=== PATIENT | female | born 1990 | race Caucasian/White ===

== ENCOUNTER → 2017-10-08 18:20 | Outpatient (CLI) | payer OTHER, SELFPAY ==
[2017-10-11 11:42] LABS: HPV Reflexed? NOT INDICATED
== END ==
PROVIDERS: Visit Provider Obstetrics & Gynecology
DX: Z12.4 Encounter for screening for malignant neoplasm of cervix (principal)
CPT/HCPCS: 88175; G0145

== ENCOUNTER 2017-11-13 10:03 | Day surgery (SDC) | payer OTHER, SELFPAY ==
[2017-11-06 13:04] LABS: Hemoglobin 13.6 g/dl (12.0-15.0); Mean Corp Hgb Conc 33.2 g/gl (32-36); Mean Corpuscular Hgb 27.5 pg (27.0-32.0); Mean Platelet Vol. 10.6 fl (6.2-12.0); Platelet Count 227 K/mm3 (150-450); RBC Distribution Width CV 12.7 % (11.6-14.6); RBC Distribution Width SD 38.7 fl (35.1-43.9); Red Blood Count 4.94 M/mm3 (4.2-5.4); Scan Indicated on CBC? Y/N NO
[2017-11-06 13:12] LABS: Prothrombin Time (Protime)PT. 12.9 SECONDS (11.7-14.9)
[2017-11-06 13:13] LABS: Partial Thromboplast Time 27.7 Seconds (24.1-36.2)
[2017-11-13 10:22] LABS: Internal QC Validated? YES +Cl - CLEAR BKGD
[2017-11-13 10:25] LABS: Pregnancy, Urine Negative Negative
[2017-11-13 10:34] VITALS: BP 122/73; PULSE 72; RESP 16; TEMP 36.4; O2SAT 100; BMI 23.8
[2017-11-13] MEDS: Bupivacaine Mpf 0.5% 30 ML VIAL (12:31)
--- NOTE | 2017-11-13 12:37 | PCM.DC ---
You will use the following diet at home:: No restrictions Discharge Activity: May not drive while taking narcotic pain medications., May Shower, May Take a Tub Bath Return to work on:: 11/15/17 May resume sexual activity in: No Restrictions - when comfortable after surgery Call your doctor if your incision/area has: Continuous Slow Oozing, Increased Pain/ Swelling, Increased Redness Call your doctor if you observe: Fever of 101 or Higher, Uncontrolled pain Change Dressing in (Days):: 4 Remove Dressing in (days):: 4 Cleanse incision/area with: Soap & Water, Keep Dressing Clean & Dry Additional Instructions: Take two ALEVE OR three Ibuprofen every 8 hrs as needed for milder pain, and add the narcotic pain medication if needed for more severe pain. Allergies/Adverse Reactions: Allergies Penicillins Allergy (Verified 11/05/17 09:57) Hives Medications to take at Discharge Cholecalciferol (Vitamin D3) [Vitamin D3] 2,000 unit PO DAILY 11/05/17 Inulin/Chromium Picolinate [Fiber Gummies] 1 each PO DAILY 11/05/17 Norgestimate-Ethinyl Estradiol [Previfem] 1 tab PO DAILY 11/05/17 Vitamin B Complex 1 each PO DAILY 11/05/17 Hydrocodone/Acetaminophen [Martin 5-325 Tablet] 1 - 2 each PO Q6H PRN PRN 3 Days #16 tablet 11/13/17 The following prescriptions were given: Hydrocodone/Acetaminophen [Martin 5-325 Tablet] 1 - 2 each PO Q6H PRN PRN 3 Days #16 tablet PRN Reason: Mod-Severe Pain (4-10/10) Primary Care Physician: Care Physician,No Primary [Primary Care Provider] - Please Follow Up With: Gladys Sullivan MD - [phone] When: in 2 wk for postop appointment Proposed Discharge Date: 11/13/17
--- NOTE | 2017-11-13 12:42 | DCINST_ITS ---
You will use the following diet at home:: No restrictions Discharge Activity: May not drive while taking narcotic pain medications., May Shower, May Take a Tub Bath Return to work on:: 11/15/17 May resume sexual activity in: No Restrictions - when comfortable after surgery Call your doctor if your incision/area has: Continuous Slow Oozing, Increased Pain/ Swelling, Increased Redness Call your doctor if you observe: Fever of 101 or Higher, Uncontrolled pain Change Dressing in (Days):: 4 Remove Dressing in (days):: 4 Cleanse incision/area with: Soap & Water, Keep Dressing Clean & Dry Additional Instructions: Take two ALEVE OR three Ibuprofen every 8 hrs as needed for milder pain, and add the narcotic pain medication if needed for more severe pain. Allergies/Adverse Reactions: Allergies Penicillins Allergy (Verified 11/05/17 09:57) Hives Medications to take at Discharge Cholecalciferol (Vitamin D3) [Vitamin D3] 2,000 unit PO DAILY 11/05/17 Inulin/Chromium Picolinate [Fiber Gummies] 1 each PO DAILY 11/05/17 Norgestimate-Ethinyl Estradiol [Previfem] 1 tab PO DAILY 11/05/17 Vitamin B Complex 1 each PO DAILY 11/05/17 Hydrocodone/Acetaminophen [[place] 5-325 Tablet] 1 - 2 each PO Q6H PRN PRN 3 Days #16 tablet 11/13/17 The following prescriptions were given: Hydrocodone/Acetaminophen [[place] 5-325 Tablet] 1 - 2 each PO Q6H PRN PRN 3 Days #16 tablet PRN Reason: Mod-Severe Pain (4-10/10) Primary Care Physician: Care Physician,No Primary [Primary Care Provider] - Please Follow Up With: Gldays Sullivan MD - [phone] When: in 2 wk for postop appointment Proposed Discharge Date: 11/13/17
[2017-11-13 13:27] VITALS: BP 114/84; BP 122/33; PULSE 65; RESP 16; TEMP 37; O2SAT 92
[2017-11-13 13:45] VITALS: BP 122/33; BP 127/88; PULSE 60; RESP 16; O2SAT 100
[2017-11-13 14:00] VITALS: BP 116/72; BP 122/33; PULSE 60; RESP 16; O2SAT 97
[2017-11-13 14:16] VITALS: BP 114/76; BP 122/33; PULSE 60; RESP 16; TEMP 36.4; O2SAT 97
--- NOTE | 2017-11-13 14:24 | OP.PCM_ITS ---
Operative Report Date of Procedure: 11/13/17 PROCEDURE: Diagnostic Laparoscopy. 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 Haylee Colindres CRNA Graduating Machine Operator: ANDREAS Reynolds EBL: minimal Complications: None Drains: Red Martinez catheter used to drain the bladder prior to initiation of the case Fluids: LR replacement Findings; Uterus with irregular contour at serosa (adenomyosis vs small fibroids). Fallopian tubes and ovaries are WNL. No evidence of endometriosis noted. Small adhesion between bowel epiploicae and L fallopian tube. Parametrial and paracervical varicosities at L side of uterus/cervix. Gross inspection of bowel omentum. liver edge also WNL. Gallbladder no visualized, appendix not visualized. Displacement vs malformation of rib in RUQ, protrudes into abdominal cavity. Narrative account: After the risks, benefits, alternatives of procedure had been reviewed with the patient, informed consent was obtained. The patient was taken to the Operating room with an IV running. she was positioned on the operating table in dorsal supine position, with arms tucked and given general anesthesia. Once asleep she was repositioned to the dorsal lithotomy position and prepped and draped in the usual sterile fashion. A red Martinez catheter was used to drain the bladder prior to initiating the case. A sponge stick was placed into the vagina to allow manipulation of the uterus and cervix during the case. Attention was then turned to the anterior abdominal wall . Skin incisions were created in the midline at the suprapubic skin and at the infraumbilical skin. While maintaining upward traction of the anterior abdominal wall a Veress needle was inserted through the umbilical incision into the peritoneal cavity. There was free drop of saline, low opening pressure and free flow of CO2 noted. Once the intraabdominal pressure had reached 12 mm of mercury the Veress needle was removed and a bladeless 5 mm trocar was placed through infraumbilical skin incision into the peritoneal cavity. Correct placement was confirmed using the scope. Under direct visualization then with the patient in Trendelenburg position, a bladeless 5 mm trocar was inserted in through suprapubic skin incision into the peritoneal cavity. The uterus as anteverted and had an irregular contour suggestive of small multiple fibroids or possibly adenomyosis. Both ovaries and fallopian tubes were WNL. There was no endometriosis noted. there were filmy adhesions of the bowel epiploicae to the L fallopian tube. there were varicose veins noted to the left side of the cervix (pelvic congestion as source of pain?). The uterus was then anteverted and a photo was taken with both fallopian tubes in view. The ovarian fossae were free of endometriosis. Of note: there was a displaced vs malformed rib protruding into the upper abdomen. The liver edge was incompletely seen, but was WNL. The gallbladder and appendix were not seen. At this point, the procedure was terminated. The pneumoperitoneum was reduced and the instruments and trocars were removed from he the anterior abdominal wall skin. The skin incisions were closed with 4-0 Monocryl in a subcuticular fashion. Skin glue and OpSites were applied to the skin. The sponge stick was removed from the vagina. The patient was returned to dorsal supine position. She was awakened from general anesthesia. She was transferred to the recovery room bed in stable condition after tolerating the procedure well. Sponge, lap, needle and instrument counts were correct x two. Medications given preop and intraoperatively included: 20 cc of 1/4 % Marcaine was used as a subcutaneous block at the end of the case. For a complete listing of medications given preop and intraop , please see the anesthesia record.
[2017-11-13 16:25] VITALS: BP 122/33
== END 2017-11-13 16:26 | disposition home or self-care (01) ==
LOC: SDC 10:03 → AC 10:05
PROVIDERS: Visit Provider Obstetrics & Gynecology
PROC: (CPT 49320; principal; 2017-11-13 12:15)
DX: N94.6 Dysmenorrhea, unspecified (principal); N94.10 Unspecified dyspareunia; G89.29 Other chronic pain; R10.2 Pelvic and perineal pain; I86.8 Varicose veins of other specified sites
CPT/HCPCS: 00840; 49320; 36415; 81025; 85027; 85610; 85730; 86850; 86900; J7120

== ENCOUNTER 2018-04-16 10:33 | Day surgery (SDC) | payer OTHER, SELFPAY ==
[2018-04-15 11:02] LABS: Hematocrit 41.4 % (37-47); Hemoglobin 13.6 g/dl (12.0-15.0); Mean Corp Hgb Conc 32.9 g/gl (32-36); Mean Corpuscular Hgb 27.9 pg (27.0-32.0); Mean Corpuscular Volume 84.8 fL (81-99); Mean Platelet Vol. 10.4 fl (6.2-12.0); Platelet Count 188 K/mm3 (150-450); RBC Distribution Width CV 13.2 % (11.6-14.6); RBC Distribution Width SD 40.6 fl (35.1-43.9); Red Blood Count 4.88 M/mm3 (4.2-5.4); White Blood Count 5.5 K/mm3 (4.4-11.0)
[2018-04-15 11:03] LABS: Scan Indicated on CBC? Y/N NO
[2018-04-15 11:08] LABS: Partial Thromboplast Time 26.7 Seconds (24.1-36.2)
[2018-04-16] VITALS (9 sets, daily range): BP systolic 99–134; BP diastolic 68–92; PULSE 58–80; RESP 16; TEMP 36.4–37.4; O2SAT 95–99; BMI 23.6
[2018-04-16 10:55] LABS: Internal QC Validated? YES +Cl - CLEAR BKGD; Pregnancy, Urine Negative Negative
--- NOTE | 2018-04-16 12:33 | PCM.OP.BLANK ---
Operative Report Date of Procedure: 04/16/18 PROCEDURE: Laparoscopic assisted vaginal hysterectomy. Bilateral salpingectomy Preoperative diagnosis: Dyspareunia Dysmenorrhea Chronic pelvic pain Failed trial of medical management Laparoscopy prior with parametrial varicosities Postop diagnosis: Dyspareunia Dysmenorrhea Chronic pelvic pain Failed trial of medical management Laparoscopy prior with parametrial varicosities. Anesthesia: General anesthesia. Rocael Sandoval CRNA Surgeon: Gladys Sullivan MD Assistant Spa Director: ANDREAS Urias RNFA EBJose Maria 100cc Complications: none Drains: Carbajal draining clear yellow urine Fluids: replacement LR Findings: Normal appearing uterus and bilateral ovaries, fallopian tubes. Gross inspect of bowel, liver edge, upper abdomen wnl. 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 PATH: Uterus, bilateral fallopian tubes Narrative account: After the risks, benefits and alternatives of the procedure were reviewed with the patient , informed consent was obtained. The patient was taken to the Operative room with an IV running . She was positioned in the dorsal supine position on the operating table and given general anesthesia. Once asleep she was positioned to the dorsal lithotomy position with the arms tucked at the sides and prepped and draped in the usual sterile fashion. A Carbajal catheter was inserted to drain the bladder and left open to drain in the drape. The weighted speculum was placed into the vagina and a single tooth tenaculum was placed at the cervix. A ZUMI uterine manipulator was inserted into the cervix and secured into place . The single toothed tenaculum was removed. Attention was then turned to the anterior abdominal wall. the skimmer scoop operator's gloved were changed and skin incisions were created at the infraumbilical and suprapubic skin and at a point approximately penitentiary between the suprapubic and infraumbilical skin incisions. Local anesthesia was used to infiltrate the skin where the trocar incision sites were created. A transverse 5 mm infraumbilical skin incision , a transverse 5 mm suprapubic incision and an transverse 5 mm midline incision were created. A Veress needle was inserted in to the peritoneal cavity at the infraumbilical skin incision while maintaining upward traction of the anterior abdominal wall at the umbilicus. There was free drop of saline, free flow of CO2 and low opening pressure noted. Once the intraabdominal pressure had reached approximately 15 mm HG, the Veress needle was removed and a bladeless 5 mm trocar was inserted into the peritoneal cavity. Correct placement was confirmed using the laparoscope. Under direct visualization the other two 5 mm bladeless trocars were inserted into the peritoneal cavity. The fallopian tubes were retracted medially and using a LigaSure device the fallopian tube was divided from the ovary and the mesosalpinx, leaving the fallopian tube free at each side of the uterus. The fallopian tubes were removed through the suprapubic trocar and set aside for later pathology review. The uteroovarian pedicles were then divided using a [place] LigaSure device. The broad ligament was then divided down to the level of the round ligament on both sides. At this point the laparoscopic portion of the case was completed. The trocars were left in place, but the instruments were removed and gas turned off. A sterile drape was used to cover the abdomen. Attention was then turned to the vaginal portion of the case. The ZUMI uterine manipulator was removed from the cervix. The single toothed tenaculum was repositioned on the cervix. A Carbajal was inserted through the urethra and clear yellow urine returned, minimal amt. The Carbajal was clamped off with a Fanny clamp. The cervical mucosal was then incised circumferentially using Bovie cautery and a knife. The posterior cul de sac was entered by sharp dissection with Burch scissors and a weighted speculum was placed into the posterior cul se sac. Dissection then was initiated at the anterior cervix to enter the anterior cul se sac. The anterior cul de sac was entered by sharp dissection and a narrow Laura retractor was inserted to retract the bladder out of harm's way for the remainder of the case. The uterosacral ligaments were clamped bilaterally with curved Carmen clamps and the pedicles divided and suture ligated and tagged for later identification. Next the cardinal ligament was clamped bilaterally and divided and suture ligated. Adequate hemostasis was noted. The anterior cul de sac peritoneum was then entered by sharp dissection and a narrow Laura retractor was placed into the anterior cul de sac to retract the bladder out of harm's way for the remainder of the case. The uterine arteries were clamped bilaterally , divided and suture ligated. Dissection then continued along each side of the uterus. Each pedicle was secured with a Carmen clamp, divided and suture ligated until ultimately the uterine fundus was reached. The superior pedicles on each side were secured with a curved Carmen clamp and the uterus was surgically amputated and set aside. The superior pedicle was then suture ligated, then free tied and tagged for identification. The superior pedicles were dry. There was bleeding noted along the posterior vaginal cuff and along the anterior vaginal cuff . The peritoneum was then closed with a running purse string suture of 1 Vicryl, incorporating the superior pedicles and uterosacral ligament tags. The vaginal apex was then closed with a series of figure of eight stitches of 1 Vicryl. Excellent hemostasis was noted. The Carbajal catheter was briefly opened and clear yellow urine (minimal amount) noted. The Carbajal was attached to the Carbajal bag and clear yellow urine returned. A second look was performed with the laparoscope: excellent hemostasis was noted at all pedicles and at the vaginal cuff. Roya was sprayed along the cuff and pedicles for additional hemostasis. The pneumoperitoneum was reduced and all instruments and trocars were removed. The skin incisions were closed with 4-0 Monocryl in a subcuticular fashion. Sterile dressings were applied. The patient was returned to dorsal supine position and awakened from general anesthesia. She was then transferred to the recovery room bed in stable condition after tolerating the procedure well. Sponge, lap, needle and instrument counts correct times two. Medications given preop and intraoperatively included: Clindamycin 900 mg IV and Gentamicin IV was given suggestion clerk to the operating room , Marcaine with epinephrine was used as a subcutaneous injection at the trocar skin incision sites, and Toradol 30 mg IV x one was given. For a complete listing of medications given preop and intraoperatively, please see the anesthesia record.
--- NOTE | 2018-04-16 12:40 | HYST_PTH ---
PATIENT: MEJIA COOL LOC: [facility] U#:[id number] AGE/SX: 27/ ROOM: RE04/16/[address]: Dr. Gladys Sullivan MD : 1990 BED: DIS: 04/17/2018 SPEC #: [id number] RECD: 04/16/18 16:14 STATUS: KATARZYNA CHANTELLE #: [id number] DANIAL: 04/16/18 12:[address]: Gladys Sullivan DEPT: SURGICAL PATHOLOGY RECD BY: Bonifacio Catherine ENTERED: 04/17/18 11:26 SP TYPE: HYSTERECT OTHR DR: No Primary Care Phys Tissues: Uterus, NOS Procedures: Surgery Specimen Level V HEADER OPERATION: Hysterectomy, lap-assisted vaginal, bilateral salpingectomy PRE-OP DIAGNOSIS: Chronic pelvic pain, dyspareunia, pelvic varicosities, dysmenorrhea TISSUE SUBMITTED: Bilateral tubes, uterus and cervix MICROSCOPIC DIAGNOSIS Uterus, cervix and bilateral fallopian tubes, vaginal hysterectomy and bilateral salpingectomy: Cervix - chronic inflammation. Endometrium - weakly proliferative endometrium. Myometrium - no pathologic diagnosis. Bilateral fallopian tubes - no pathologic diagnosis. SJ:jaqueline 04/18/18 MICROSCOPIC DESCRIPTION Slides are reviewed. GROSS DESCRIPTION Received in fixative is one container labeled with the patient's name and designated bilateral tubes, uterus, cervix. The specimen consists of a hysterectomy specimen consisting of uterus with cervix and detached bilateral fallopian tubes. The uterus with cervix weighs 65 gm and measures 8.5 x 5 x 3.5 cm. The serosal surface is strong, glistening. The ectocervical mucosa is unremarkable. The external os is oval in contour. The endocervical canal measures 2.5 cm in length and the endocervical mucosa is unremarkable. The triangular endometrial cavity measures 4 cm in length and up to 2.5 cm in width. The endometrium is strong, glistening without any mass lesion and measures <0.1 cm in thickness. Sections of the uterine wall do not reveal any mass lesion and measures up to 1.5 cm in thickness. The fallopian tubes are not identified as right or left. One of the fallopian tubes measure 4.5 cm in length and 0.5 cm in diameter and the second fallopian tube measures 3 cm in length and 0.5 cm in diameter. The fimbrial end is identified. Archer[employer] Hay Sorter sections are submitted in eight cassettes as follows: 1 - anterior cervix, 2 - posterior cervix, 3 & 4 - anterior uterine wall, 5 & 6 - posterior uterine wall, 7 - one fallopian tube, 8 - second fallopian tube, entirely submitted. / JANA:jaqueline 04/17/18 TC:5 CPT: 54639
[2018-04-16] MEDS: Bupiv/Epi 0.5% Mpf 30 ML Vial (14:11)
--- NOTE | 2018-04-16 14:25 | PCM.DC.VHY ---
Discharge Diet: No Restrictions Discharge Activity: May not drive while taking narcotic pain medications., May Shower, May Take a Tub Bath Return to work on:: 06/02/18 May resume sexual activity in: 4-6 weeks Call your doctor if you observe: Fever of 101 or Higher, Inability to have a bowel movement, Using more than one pad per hour, Calf discomfort, Uncontrolled pain Change Dressing in (Days):: 7 Remove Dressing in (days):: 7 Cleanse incision/area with: Soap & Water, Keep Dressing Clean & Dry Additional Instructions: You may take Tylenol 500 mg tablets, one or two every 8 hrs for pain You may ADD EITHER Aleve two tablets every 8 hrs OR Ibuprofen 3 tablets every 8 hr for pain Take OxyIR for more severe pain. OK to walk, and do light activity as tolerated/ comfortable. Allergies/Adverse Reactions: Allergies Penicillins Allergy (Verified 04/10/18 10:22) Hives Medications to take at Discharge Cholecalciferol (Vitamin D3) [Vitamin D3] 2,000 unit PO DAILY 11/05/17 Inulin/Chromium Picolinate [Fiber Gummies] 1 each PO DAILY 11/05/17 Vitamin B Complex 1 each PO DAILY 11/05/17 Docusate Sodium [Colace] 100 mg PO BID #30 capsule 04/16/18 Naproxen 250 - 500 mg PO Q8H PRN PRN #30 tablet 04/16/18 Oxycodone [Oxyir] 5 mg PO Q6H PRN PRN 7 Days #20 tablet 04/16/18 The following prescriptions were given: Oxycodone [Oxyir] 5 mg PO Q6H PRN PRN 7 Days #20 tablet PRN Reason: Mod-Severe Pain (4-10/10) Naproxen 250 - 500 mg PO Q8H PRN PRN #30 tablet PRN Reason: Mild-Mod Pain (1-5/10) Docusate Sodium [Colace] 100 mg PO BID #30 capsule Primary Care Physician: Care Physician,No Primary [Primary Care Provider] - Test Results: Test results from this visit will be discussed in further detail at your follow-up appointment, if applicable. Please Follow Up With: Gladys Sullivan MD - [phone] When: in 2 wk for postop appointment as you have scheduled. Proposed Discharge Date: 04/17/18
--- NOTE | 2018-04-16 14:31 | DCINST_ITS ---
Discharge Diet: No Restrictions Discharge Activity: May not drive while taking narcotic pain medications., May Shower, May Take a Tub Bath Return to work on:: 06/02/18 May resume sexual activity in: 4-6 weeks Call your doctor if you observe: Fever of 101 or Higher, Inability to have a bowel movement, Using more than one pad per hour, Calf discomfort, Uncontrolled pain Change Dressing in (Days):: 7 Remove Dressing in (days):: 7 Cleanse incision/area with: Soap & Water, Keep Dressing Clean & Dry Additional Instructions: You may take Tylenol 500 mg tablets, one or two every 8 hrs for pain You may ADD EITHER Aleve two tablets every 8 hrs OR Ibuprofen 3 tablets every 8 hr for pain Take OxyIR for more severe pain. OK to walk, and do light activity as tolerated/ comfortable. Allergies/Adverse Reactions: Allergies Penicillins Allergy (Verified 04/10/18 10:22) Hives Medications to take at Discharge Cholecalciferol (Vitamin D3) [Vitamin D3] 2,000 unit PO DAILY 11/05/17 Inulin/Chromium Picolinate [Fiber Gummies] 1 each PO DAILY 11/05/17 Vitamin B Complex 1 each PO DAILY 11/05/17 Docusate Sodium [Colace] 100 mg PO BID #30 capsule 04/16/18 Naproxen 250 - 500 mg PO Q8H PRN PRN #30 tablet 04/16/18 Oxycodone [Oxyir] 5 mg PO Q6H PRN PRN 7 Days #20 tablet 04/16/18 The following prescriptions were given: Oxycodone [Oxyir] 5 mg PO Q6H PRN PRN 7 Days #20 tablet PRN Reason: Mod-Severe Pain (4-10/10) Naproxen 250 - 500 mg PO Q8H PRN PRN #30 tablet PRN Reason: Mild-Mod Pain (1-5/10) Docusate Sodium [Colace] 100 mg PO BID #30 capsule Primary Care Physician: Care Physician,No Primary [Primary Care Provider] - Test Results: Test results from this visit will be discussed in further detail at your follow- up appointment, if applicable. Please Follow Up With: Gladys Sullivan MD - [phone] When: in 2 wk for postop appointment as you have scheduled. Proposed Discharge Date: 04/17/18
[2018-04-16] MEDS: Ondansetron 4 MG/2 ML Vial IV ×2 (17:04→21:39)
[2018-04-16] MEDS: Ketorolac 30 MG/ML Syringe IV ×2 (17:04→23:36)
[2018-04-16] MEDS: Lactated Ringers 1,000 ML 125 ML IV (19:57)
[2018-04-16] MEDS: Acetaminophen 500 MG Tablet 1000 MG PO (20:35)
[2018-04-16] MEDS: oxyCODONE 5 MG Tablet PO (20:36)
[2018-04-17 02:24] VITALS: BP 114/73; PULSE 69; RESP 16; TEMP 37.4; O2SAT 98
[2018-04-17 06:29] LABS: Hematocrit 35.3 % (37-47); Hemoglobin 11.8 g/dl (12.0-15.0); Mean Corp Hgb Conc 33.4 g/gl (32-36); Mean Corpuscular Hgb 28.4 pg (27.0-32.0); Mean Corpuscular Volume 85.1 fL (81-99); Mean Platelet Vol. 11.1 fl (6.2-12.0); Platelet Count 142 K/mm3 (150-450); RBC Distribution Width CV 13.1 % (11.6-14.6); RBC Distribution Width SD 40.1 fl (35.1-43.9); Red Blood Count 4.15 M/mm3 (4.2-5.4); White Blood Count 8.7 K/mm3 (4.4-11.0)
[2018-04-17 06:33] LABS: Scan Indicated on CBC? Y/N NO
[2018-04-17 07:16] LABS: Creatinine, Serum 0.71 mg/dL (0.55-1.02); EST Glomerular Filtration Rate 104 mL/min (>60); Est Glom Filt Rate - Afr Amer 126 mL/min (>60); Estimated Creatinine Clearance 97.58 ml/min
[2018-04-17 07:32] VITALS: O2SAT 97
--- NOTE | 2018-04-17 07:51 | PCM.PROGNOTE ---
Subjective: POD#1 LAVH, bilateral salpingectomy for chronic pelvic pain, dysmenorrhea, dyspareunia. paracervical / parametrial varicosities. Doing well Carbajal removed and has voided once. Has declined pain med this am as states crampiness manageable and not as bad as her period normally is. Toradol overnight. Tylenol and OxyIR. Minimal bleeding. Nausea last night, but none this am. - Physical Exam General: Alert, Oriented x3, Cooperative, No apparent distress HEENT: Atraumatic Neck: Supple Abdomen: Soft Skin: Incision - L/S incisions: dressing CDI (op sites on) all three sites Neurological: Cranial nerves II-XII grossly intact Psych/Mental Status: Normal Affect Vital Signs Temp Pulse Resp BP Pulse Ox 99.4 F H 69 16 114/73 97 04/17/18 02:24 04/17/18 02:24 04/17/18 02:24 04/17/18 02:24 04/17/18 07:32 Oxygen Delivery Method Room Air Weight: 60.328 kg Body Mass Index (BMI) 23.6 Intake and Output for Last 24 Hours 04/15/18 04/16/18 04/17/18 23:59 23:59 23:59 Intake Total 1607 / 1607 919 / 919 Output Total 1050 / 1050 1200 / 1200 Balance 557 / 557 -281 / -281 Laboratory Tests Past 24 Hrs 04/16/18 04/17/18 04/17/18 10:45 05:52 05:52 WBC 8.7 RBC 4.15 L Hgb 11.8 L Hct 35.3 L MCV 85.1 MCH 28.4 MCHC 33.4 RDW 13.1 RDW Differential 40.1 Plt Count 142 L MPV 11.1 Creatinine 0.71 Estim Creat Clear Calc 97.58 Est GFR (MDRD) Af Amer 126 Est GFR (MDRD) Non-Af 104 Urine Test Negative Medical Necessity - Tobacco Use Smoking Status: Current every day smoker Tobacco Use: Cigarettes Assessment/Plan POD#1 LAVH, Bilateral salpingectomy Stable postop. Voiding trial appears successful. Tolerating diet. IV to S/L. Pain control adequate. Dischg home today. RTO in 2 wk for postop incision check.
--- NOTE | 2018-04-17 07:54 | PCM.DC.SUM ---
Hospital Course and Treatment Operations: hysterectomy - LAVH, bilateral salpingectomy Summary of Care Provided: The patient is a 27 year old female admitted for LAVH, bilateral salpingectomy 2/2 chronic pelvic pain, dyspareunia, dysmenorrhea. LAVH, Bilateral salpingectomy performed without complication. Postop course uneventful. CBC stable. Home on POD #1 Tolerating diet, pain control adequate and voiding well. - Physical Exam Vital Signs Temp Pulse Resp BP Pulse Ox 99.4 F H 69 16 114/73 97 04/17/18 02:24 04/17/18 02:24 04/17/18 02:24 04/17/18 02:24 04/17/18 07:32 Oxygen Delivery Method Room Air Weight: 60.328 kg Body Mass Index (BMI) 23.6 Intake and Output for Last 24 Hours 04/15/18 04/16/18 04/17/18 23:59 23:59 23:59 Intake Total 1607 / 1607 919 / 919 Output Total 1050 / 1050 1200 / 1200 Balance 557 / 557 -281 / -281 Laboratory Tests Past 24 Hrs 04/16/18 04/17/18 04/17/18 10:45 05:52 05:52 WBC 8.7 RBC 4.15 L Hgb 11.8 L Hct 35.3 L MCV 85.1 MCH 28.4 MCHC 33.4 RDW 13.1 RDW Differential 40.1 Plt Count 142 L MPV 11.1 Creatinine 0.71 Estim Creat Clear Calc 97.58 Est GFR (MDRD) Af Amer 126 Est GFR (MDRD) Non-Af 104 Urine Test Negative Discharge Diet: No Restrictions Discharge Activity: May not drive while taking narcotic pain medications., May Shower, May Take a Tub Bath Return to work on:: 06/02/18 May resume sexual activity in: 4-6 weeks Call your doctor if you observe: Fever of 101 or Higher, Inability to have a bowel movement, Using more than one pad per hour, Calf discomfort, Uncontrolled pain Change Dressing in (Days):: 7 Remove Dressing in (days):: 7 Cleanse incision/area with: Soap & Water, Keep Dressing Clean & Dry Home Medications: Medications to take at Discharge Cholecalciferol (Vitamin D3) [Vitamin D3] 2,000 unit PO DAILY 11/05/17 Inulin/Chromium Picolinate [Fiber Gummies] 1 each PO DAILY 11/05/17 Vitamin B Complex 1 each PO DAILY 11/05/17 Docusate Sodium [Colace] 100 mg PO BID #30 capsule 04/16/18 Naproxen 250 - 500 mg PO Q8H PRN PRN #30 tablet 04/16/18 Oxycodone [Oxyir] 5 mg PO Q6H PRN PRN 7 Days #20 tablet 04/16/18 Following Prescrptions Were Given to Patient: Oxycodone [Oxyir] 5 mg PO Q6H PRN PRN 7 Days #20 tablet PRN Reason: Mod-Severe Pain (4-04/02) Naproxen 250 - 500 mg PO Q8H PRN PRN #30 tablet PRN Reason: Mild-Mod Pain (1-10/31) Docusate Sodium [Colace] 100 mg PO BID #30 capsule Primary Care Physician: Care Physician,No Primary [Primary Care Provider] - Please Follow Up With: Gladys Sullivan MD - [phone] When: in 2 wk for postop appointment as you have scheduled. Additional Instructions: You may take Tylenol 500 mg tablets, one or two every 8 hrs for pain You may ADD EITHER Aleve two tablets every 8 hrs OR Ibuprofen 3 tablets every 8 hr for pain Take OxyIR for more severe pain. OK to walk, and do light activity as tolerated/ comfortable. Medical Necessity - Tobacco Use Smoking Status: Current every day smoker Tobacco Use: Cigarettes Meaningful Use Info Meaningful Use Diagnoses (Choose all that apply): None applicable
[2018-04-17 09:09] VITALS: BP 144/89; PULSE 66; RESP 18; TEMP 36.9
[2018-04-17] MEDS: Ketorolac 30 MG/ML Syringe IV (09:15)
[2018-04-17] MEDS: 0.9% NaCl Peripheral Flush Adult/Peds IV (09:16)
== END 2018-04-17 10:40 | disposition home or self-care (01) ==
LOC: SDC 12:26 → AC 13:36 → MS3 13:36
PROVIDERS: Referring Provider Obstetrics & Gynecology; Visit Provider Obstetrics & Gynecology
PROC: 0UT9FZZ Resection of Uterus, Via Natural or Artificial Opening With Percutaneous Endoscopic Assistance (ICD-10-PCS; CPT 58552; principal; 2018-04-16 12:15)
DX: N72 Inflammatory disease of cervix uteri (principal); N94.10 Unspecified dyspareunia; I86.8 Varicose veins of other specified sites; D64.9 Anemia, unspecified; F17.210 Nicotine dependence, cigarettes, uncomplicated
CPT/HCPCS: 00840; 58552; 36415; 81025; 82565; 85027; 85610; 85730; 86850; 86900; 88307; J7120; A4216; J2405

== ENCOUNTER → 2018-04-29 11:29 | Outpatient (CLI) | payer OTHER, SELFPAY ==
[2018-04-29 13:56] LABS: Hematocrit 40.1 % (37-47); Hemoglobin 13.3 g/dl (12.0-15.0); Mean Corp Hgb Conc 33.2 g/gl (32-36); Mean Corpuscular Hgb 28.1 pg (27.0-32.0); Mean Corpuscular Volume 84.8 fL (81-99); Mean Platelet Vol. 11.3 fl (6.2-12.0); Platelet Count 205 K/mm3 (150-450); RBC Distribution Width SD 39.6 fl (35.1-43.9); Red Blood Count 4.73 M/mm3 (4.2-5.4); White Blood Count 7.7 K/mm3 (4.4-11.0)
[2018-04-29 13:57] LABS: Scan Indicated on CBC? Y/N NO
[2018-04-29 14:14] LABS: AST(SGOT) 17 U/L (15-37); Alanine Aminotransfer ALT/SGPT 36 U/L (13-56); Albumin, Serum 3.8 g/dL (3.2-5.0); Alkaline Phosphatase 53 U/L (45-117); Anion Gap 8 (5-15); BUN 12 mg/dL (7-18); BUN/Creat Ratio 21.6 RATIO (10-20); Calcium,Total 9.1 mg/dL (8.5-10.1); Chloride 105 mmol/L (98-107); Creatinine, Serum 0.56 mg/dL (0.55-1.02); EST Glomerular Filtration Rate 138 mL/min (>60); Est Glom Filt Rate - Afr Amer 167 mL/min (>60); Globulin 3.8 g/dL (2.2-4.2); Glucose 75 mg/dL (74-106); Potassium 3.8 mmol/L (3.5-5.1); Protein, Total 7.6 g/dL (6.4-8.2); Sodium Level 140 mmol/L (136-145)
== END ==
PROVIDERS: Visit Provider Obstetrics & Gynecology
DX: R42 Dizziness and giddiness (principal); Z98.890 Other specified postprocedural states
CPT/HCPCS: 36415; 80053; 85027